=== PATIENT | female | born 1975 | race Caucasian/White ===

== ENCOUNTER 2016-09-05 10:00 | Emergency (ER) | payer BC, MEDICARE ==
[~2016-09-05] VITALS: Ht 162.6 cm; Wt 75.0 kg
[2016-09-05 11:41] VITALS: BP 131/82
== END 2016-09-05 12:16 | disposition home or self-care (01) ==
LOC: EMS 10:04
DX: S83.92XA Sprain of unspecified site of left knee, initial encounter (principal); M25.462 Effusion, left knee; X58.XXXA Exposure to other specified factors, initial encounter; Y93.89 Activity, other specified; Y92.89 Other specified places as the place of occurrence of the external cause; Y99.8 Other external cause status
CPT/HCPCS: 29505; 99284

== ENCOUNTER 2017-05-23 19:21 | Emergency (ER) | payer BC ==
[~2017-05-23] VITALS: Ht 162.6 cm; Wt 75.0 kg
[2017-05-23] MEDS ORDERED: CODEINE PO (19:27)
[2017-05-23] MEDS ORDERED: IBUP-2070 PO (19:27)
[2017-05-23 21:12] VITALS: BP 145/96
[2017-05-23] MEDS ORDERED: IBUPROFEN 800 MG TABLET PO ONE (21:15)
== END 2017-05-23 21:52 | disposition home or self-care (01) ==
LOC: EMS 19:23
DX: J06.9 Acute upper respiratory infection, unspecified (principal)
CPT/HCPCS: 87430; 99283

== ENCOUNTER 2023-01-11 16:50 | Emergency (ER) | payer BC, OTHER ==
[~2023-01-11] VITALS: Ht 162.6 cm; Wt 81.8 kg
[~2023-01-11 16:50] MED LIST: CODEINE PO; IBUP-1492 PO
[2023-01-11 17:26] VITALS: BP 169/93
[2023-01-11 17:58] LABS: COVID AG,FIA SOURCE NASAL SWAB
[2023-01-11 18:17] LABS: INFLUENZA TYPE A NEGATIVE FOR TYPE A (NEGATIVE); INFLUENZA TYPE B NEGATIVE FOR TYPE B (NEGATIVE)
[2023-01-11] MEDS ORDERED: PSEU-221 PO (20:00)
[2023-01-11] MEDS ORDERED: OXYMETAZOLINE HCL 0.05% 15 ML NASAL SPRAY NASAL ONE (20:00)
[2023-01-11] MEDS ORDERED: AZIT250T9 PO (20:00)
== END 2023-01-11 21:00 | disposition home or self-care (01) ==
LOC: EMS 16:51
DX: J32.9 Chronic sinusitis, unspecified (principal); Z20.822 Contact with and (suspected) exposure to COVID-19; Z98.890 Other specified postprocedural states
CPT/HCPCS: 87804; 99283